=== PATIENT | male | born 2000 | race Caucasian/White ===

== ENCOUNTER 2024-01-03 21:17 | Emergency (ER) | payer OTHER, SELFPAY ==
--- NOTE | ~2024-01-03 | US_ITS ---
EXAMINATION: US SCROTUM CLINICAL INFORMATION: Pain.. COMPARISON: None available. TECHNIQUE: A sonogram of the scrotum was performed assessing [place]ult[place]-scale appearance and color Doppler flow. Spectral Doppler analysis of the arterial and venous flow were performed in the testes bilaterally. Visualization of the left epididymis is somewhat limited. FINDINGS: RIGHT: Right testicle measures 4.8 x 2.7 x 2.9 cm, volume 19.5 mL. No focal testicular parenchymal lesions are visualized. Spectral Doppler analysis of the arterial and venous flow is normal in the right testis. Right epididymal head is normal in size. No right hydrocele or varicocele is seen. Right epididymal Doppler flow is normal. LEFT: Left testicle measures 5.1 x 2.5 x 2.7 cm, volume 17.7 mL. No focal testicular parenchymal lesions are visualized. Spectral Doppler analysis of the arterial and venous flow is normal in the left testis. Left epididymal head is normal in size. No left hydrocele or varicocele is seen. Left epididymal Doppler flow is normal. US/US scrotum IMPRESSION: Unremarkable examination.
--- NOTE | ~2024-01-03 | US_ITS ---
EXAMINATION: US SCROTUM CLINICAL INFORMATION: Pain.. COMPARISON: None available. TECHNIQUE: A sonogram of the scrotum was performed assessing [place]ulton-scale appearance and color Doppler flow. Spectral Doppler analysis of the arterial and venous flow were performed in the testes bilaterally. Visualization of the left epididymis is somewhat limited. FINDINGS: RIGHT: Right testicle measures 4.8 x 2.7 x 2.9 cm, volume 19.5 mL. No focal testicular parenchymal lesions are visualized. Spectral Doppler analysis of the arterial and venous flow is normal in the right testis. Right epididymal head is normal in size. No right hydrocele or varicocele is seen. Right epididymal Doppler flow is normal. LEFT: Left testicle measures 5.1 x 2.5 x 2.7 cm, volume 17.7 mL. No focal testicular parenchymal lesions are visualized. Spectral Doppler analysis of the arterial and venous flow is normal in the left testis. Left epididymal head is normal in size. No left hydrocele or varicocele is seen. Left epididymal Doppler flow is normal. US/US scrotum doppler IMPRESSION: Unremarkable examination.
[2024-01-03 21:28] VITALS: BP 133/70; PULSE 89; RESP 16; TEMP 37.2; O2SAT 100; BMI 19.6
--- NOTE | 2024-01-03 22:17 | ED.MALEGU ---
HPI - Male Genitourinary General Chief complaint: Urogenital-Male Stated complaint: Testicle pain Time Seen by Provider: 01/03/24 21:39 Source: patient, RN notes reviewed and old records reviewed Mode of arrival: ambulatory Limitations: no limitations History of Present Illness HPI Narrative: 23-year-old male presents for evaluation of testicular pain and swelling. Patient reports that around 3:30 p.m. today, about 5 hours prior to arrival he noticed pain to his right testicle pain He states that the right side of his scrotum appears red He reports he is sexually active but monogamous with 1 partner pain Denies any concern for sexually transmitted infections. He denies any urethral discharge, burning with urination Denies any abdominal pain Related Data Allergies Allergy/AdvReac Type Severity Reaction Status Date / Time No Known Allergies Allergy Verified 01/03/24 21:27 Review of Systems Constitutional: Constitutional: Denies body ache(s), Denies chills and Denies fever(s) Eyes: Eyes: Denies eye pain Cardiovascular: Cardiovascular: Denies chest pain Gastrointestinal: Gastrointestinal: Denies abdominal pain Genitourinary: Genitourinary: Reports genital pain and Denies testicular mass Comments: Right testicular pain Musculoskeletal: Musculoskeletal: Denies back pain Integumentary/Breasts: Skin/Breast: Denies rash PMFSH Social History Social History Advance Directives: No Advance Directives Information Provided: No Physical Exam Vital Signs: Vital Signs: Last Vital Signs Temp 98.9 F 01/03/24 21:28 Pulse 89 01/03/24 21:28 Resp 16 01/03/24 21:28 BP 133/70 01/03/24 21:28 Pulse Ox 100 01/03/24 21:28 O2 Del Method Room Air 01/03/24 21:28 BMI result Body Mass Index 19.6 Const: General: healthy appearing, comfortable, no acute distress, alert and awake Nutritional Appearance: well nourished Orientation/consciousness: patient oriented x3 HEENT: Head: Yes normocephalic and Yes atraumatic Neck: Neck: Yes full ROM Resp: Effort & Inspection: normal respiratory effort, able to speak in complete sentences and not labored Cardio: Rate: regular rate Rhythm: regular rhythm : Other: Patient has some redness to the right hemiscrotum. This area is tender to palpation. No obvious testicular mass on palpation. Uncircumcised male phallus Skin: General skin exam: elasticity normal Neuro: General: patient oriented x3 Cranial nerves: Yes Bilaterally intact EOM present Cognition (Neuro): normal cognition Medical Decision Making Medical Decision Making MDM Narrative: 23-year-old male presents for evaluation of atraumatic testicular pain and swelling. Plan for ultrasound to rule out torsion. Also differential is epididymitis, scrotal cellulitis, hydrocele, Differential Diagnosis Differential Diagnoses: The differential diagnosis associated with the presentation includes See above Lab Data Labs: Lab Results 01/03/24 Range/Units 22:16 Urine Color Yellow Urine Appearance Clear Urine pH 6.5 (5.0-9.0) Ur Specific [place] 1.015 (1.005-1.025) Urine Protein Negative (Neg-Trace) mg/dL Urine Glucose (UA) Negative (Negative) mg/dL Urine Ketones Negative (Negative) mg/dL Urine Blood Negative (Negative) Urine Nitrite Negative (Negative) Ur Leukocyte Esterase Negative (Negative) Urine RBC 0-2 (0-2) /HPF Urine WBC 0-5 (0-5) /HPF Ur Squamous Epith Cells 0-2 (0-2) /HPF Urine Bacteria None Seen (None Seen) Hyaline Casts 0-2 (0-2) /LPF Radiology Impression Discussion of test interpretation with radiology: I have reviewed the radiologist's reading. (Unremarkable scrotal exam) Discharge Plan Discharge Clinical Impression: Pain in right testicle Patient Disposition: Home, Self-Care Instructions: Testicle Pain (ED) Additional Instructions: Your ultrasound was reassuring. Specifically there was no evidence of torsion or epididymitis. Your urine sample did not show signs of infection. Follow-up with your primary doctor, return for new or worsening symptoms
[2024-01-03 22:23] LABS: Appearance Urine Clear; Color Urine Yellow; Glucose Urine UA Negative (Negative); Leukocyte Esterase Urine Negative (Negative); Nitrite Urine Negative (Negative); PH 6.5 (5.0-9.0); Specific Gravity - Urine 1.015 (1.005-1.025); Urine Blood Negative (Negative); Urine Ketones Negative (Negative); Urine Protein Negative (Neg-Trace)
[2024-01-03 22:28] LABS: Bacteria Urine None Seen (None Seen); Hyaline Casts Urine 0-2 /LPF (0-2); RBC Urine 0-2 /HPF (0-2); Squamous Epithelial Cell Urine 0-2 /HPF (0-2); WBC Urine 0-5 /HPF (0-5)
[2024-01-03 23:38] VITALS: BP 130/76; PULSE 88; RESP 16; TEMP 36.8; O2SAT 99
[2024-01-04 05:41] LABS: CT PCR NOT DETECTED (Not Detect.); NG PCR NOT DETECTED (Not Detect.)
== END 2024-01-03 23:39 | disposition home or self-care (01) ==
PROVIDERS: Physician Assistant; Emergency Provider Emergency Medicine
DX: N50.811 Right testicular pain (principal); Z72.89 Other problems related to lifestyle
CPT/HCPCS: 0353U; 76870; 81001; 93975; 99284